=== PATIENT | female | born 1935 | race Caucasian/White ===

== ENCOUNTER 2021-12-08 13:42 | Outpatient (REF) | payer MEDICARE, SELFPAY ==
--- NOTE | ~2021-12-08 | MR_ITS ---
EXAMINATION: MR OF THE BRAIN WITHOUT CONTRAST CLINICAL INFORMATION: 85-year-old with self-reported history of Meniere's disease and stroke 3-4 months prior. COMPARISON: None TECHNIQUE: Multiplanar multisequence MR imaging of the brain was done without IV contrast. FINDINGS: BRAIN VOLUME: [id number] generalized diffuse parenchymal volume loss within the limitations of qualitative assessment. STRUCTURAL: No malformations. BRAIN AND MENINGES: DWI sequence demonstrates no restricted diffusion to suggest acute or subacute cerebral ischemia. A small DWI bright zone at the location of a focus of encephalomalacia in the left frontal lobe related to a remote cortical infarct at this location to the MCA distribution is noted, which likely reflects T2 shine through. There are mildly to moderately extensive patchy and confluent zones of FLAIR/T2 signal hyperintensity in the deeper periventricular white matter and to a lesser degree the subcortical white matter of both cerebral hemispheres, consistent with chronic ischemic microangiopathy. There is evidence of a remote left MCA cortical infarct in the frontal lobe and a remote right occipital infarct. Possible tiny remote infarct in the inferior right cerebellar hemisphere. Brainstem appears intact. Gradient refocused imaging demonstrates a few punctate zones of susceptibility artifact in the parietal lobes bilaterally which are nonspecific but may reflect tiny foci of mineralizing microangiopathy. There is evidence of a very small remote right parietal infarct. No extra-axial fluid collections, space-occupying process or mass effect are identified. VENTRICLES AND SUBARACHNOID SPACES: The ventricular system and subarachnoid spaces are consistent with generalized volume loss without hydrocephalus. ORBITAL STRUCTURES: The visualized orbital structures are grossly unremarkable within the limitations of the study. VASCULAR: Signal voids are noted in the visualized major intracranial vessels. OSSEOUS STRUCTURES, SINUSES/MASTOIDS, EXTRACRANIAL SOFT TISSUES: Nonspecific mildly heterogeneous marrow signal intensity within the calvarial diploic space with otherwise normal marrow signal intensity. MR/MR head/brain wo con IMPRESSION: 1. [id number] generalized diffuse parenchymal volume loss and chronic ischemic microangiopathy in the white matter of both cerebral hemispheres with evidence of remote cortical infarcts in the left frontal lobe, right occipital lobe, right parietal lobe and a possible tiny remote infarct in the right cerebellar hemisphere. 2. No acute intracranial process. No acute or subacute cerebral ischemia, extra-axial fluid collection, space-occupying process, mass effect or hydrocephalus. 3. A few punctate zones of susceptibility artifact in the parietal lobes bilaterally which are nonspecific but may reflect tiny foci of mineralizing microangiopathy or tiny foci of remote microhemorrhage.
[2021-12-08 15:44] LABS: Alanine Aminotransferase 15 U/L (0-31); Albumin Level 3.8 g/dL (3.5-5.0); Alkaline Phosphatase 109 U/L (39-117); Anion Gap 18 (12-20); Aspartate Amino Transferase 26 U/L (5-31); Bilirubin Total 1.1 mg/dL (0.0-1.0); Blood Urea Nitrogen 14 mg/dL (9-16); Calcium 9.6 mg/dL (8.4-10.2); Carbon Dioxide 19 mmol/L (22-29); Chloride 107 mmol/L (96-108); Estimated Glomerular Filt Rate 58; Glucose Random 83 mg/dL (60-115); Potassium 5.3 mmol/L (3.3-5.1); Sodium 139 mmol/L (135-145); Total Protein 6.7 g/dL (6.5-8.0)
== END 2021-12-08 13:43 | disposition home or self-care (01) ==
LOC: HO.MRI 13:42
PROVIDERS: PCP Internal Medicine; Visit Provider Psychiatry & Neurology Neurology
DX: I63.9 Cerebral infarction, unspecified (principal)
CPT/HCPCS: 36415; 70551; 80053

== ENCOUNTER 2021-12-30 14:52 | Outpatient (REF) | payer MEDICARE, SELFPAY ==
--- NOTE | ~2021-12-30 | US_ITS ---
EXAMINATION: US EXTRACRANIAL CAROTID DUPLEX, BILATERAL CLINICAL INFORMATION: Cerebral infarction COMPARISON: None TECHNIQUE: Real-time ultrasound and Doppler techniques (integrating B-mode 2-D vascular images, Doppler spectral analysis and color-flow Doppler imaging) were utilized to interrogate the extracranial carotid arteries, the vertebral arteries and proximal subclavian arteries bilaterally. The degree of stenosis is determined by criteria similar to NASCET. FINDINGS: Right Side: 1. There is mild atherosclerotic plaque seen in the bifurcation/proximal ICA region. 2. The common carotid artery PSV proximally is 50.2 cm/s and distally 41.7 cm/s. 3. The proximal internal carotid artery velocities are 47.9 cm/s systolic and 7.1 cm/s diastolic. 4. The proximal external carotid artery PSV is 56.2 cm/s. 5. The vertebral artery shows antegrade flow. 6. The subclavian artery waveforms are normal. Left Side: 1. There is mild, irregular atherosclerotic plaque seen in the bifurcation/proximal ICA region. 2. The common carotid artery PSV proximally is 127 cm/s and distally 57.8 cm/s. 3. The proximal internal carotid artery velocities are 57.8 cm/s systolic and 11.8 cm/s diastolic. 4. The proximal external carotid artery PSV is 58.0 cm/s. 5. The vertebral artery shows antegrade flow. 6. The subclavian artery waveforms are normal. US/US carotid duplex BI IMPRESSION: 1. RIGHT: Minimal, non-hemodynamically significant stenosis of the proximal right internal carotid artery corresponding to a 0-49% stenosis by velocity criteria. 2. LEFT: Minimal, non-hemodynamically significant stenosis of the proximal left internal carotid artery corresponding to a 0-49% stenosis by velocity criteria.
== END 2021-12-30 14:53 | disposition home or self-care (01) ==
LOC: HO.US 14:52
PROVIDERS: Visit Provider Psychiatry & Neurology Neurology
DX: Z86.73 Personal history of transient ischemic attack (TIA), and cerebral infarction without residual deficits (principal)
CPT/HCPCS: 93880